=== PATIENT | female | born 1995 | race Caucasian/White ===

== ENCOUNTER 2018-02-15 11:51 | Emergency (ER) | payer OTHER ==
--- NOTE | 2018-02-15 12:39 | ED ---
GI/ HPI - HPI Summary HPI Summary: Pt presents w/ multiple sx which started Sunday. She initially had a loose stool on Sunday without any pain or discomfort however by Sunday she was starting to feel run down, feverish, had a sore throat, achey joints and had ongoing diarrhea. Sunday into Sunday she started to develop abdominal discomfort and this has settled in the left lower quadrant today where it's been constant. She reports this as an annoying pressure - 2/10. Nausea well controlled. Pain does not radiate from this area nor was another area prior to moving to the left lower quadrant. She has had nausea without vomiting but is trying to stay hydrated and eat bland fluids and foods to stay nourished. She denies worsening of symptoms or pain with eating and drinking. Additionally, she denies dysuria, urinary frequency, urinary urgency, flank pain, vaginal irritation, vaginal discharge, vaginal itching, dyspareunia, postcoital bleeding. She does admit she's been taking control since she was 16 years old for dysmenorrhea and recently stopped this 2 weeks ago. She has still not had her menstrual cycle since and is still sexually active. She took a home test which was negative. She feels safe at home. She went to [facility] Sunday and was dx'd w/ a UTI based on the sx she described here and did not provide a urine sample as she was unable to urinate at that time but urinated as soon as she left the office w/o pain or difficulty. Has been taking macrobid and pyridium since w/o relief. Denies CHAUHAN, rhinorrhea, otalgia, sneezing, coughing, dizziness, CP, SOB, numbness, tingling, weakness - just feels wiped out in general. - History of Current Complaint Chief Complaint: EDUrogenitalProblems Time Seen by Provider: 02/15/18 12:07 Stated Complaint: BLADDER INFECTION Hx Obtained From: Patient Pain Intensity: 4 - Allergy/Home Medications Allergies/Adverse Reactions: Allergies Allergy/AdvReac Type Severity Reaction Status Date / Time No Known Allergies Allergy Verified 02/15/18 11:59 Home Medications: Home Medications Nitrofurantoin Monohyd/M-Cryst [Macrobid 100 mg Capsule] 100 mg PO BID 02/15/18 [History Confirmed 02/15/18] Phenazopyridine TAB* [Pyridium 100 mg TAB*] 100 mg PO TID 02/15/18 [History Confirmed 02/15/18] PMH/Surg Hx/FS Hx/Imm Hx Previously Healthy: Yes Endocrine/Hematology History: Denies: Autoimmune Disease Sensory History: Reports: Hx Contacts or Glasses Opthamlomology History: Reports: Hx Contacts or Glasses, Other Sensory Impairments - dry eyes - uses drops (could be from contact lens use) EENT History: Reports: Other - septoplasty Psychiatric History: Reports: Hx Anxiety - on citalopram - Surgical History Surgery Procedure, Year, and Place: wisdom teeth extraction Infectious Disease History: No Infectious Disease History: Denies: Traveled Outside the [place] in Last 30 Days - Family History Known Family History: Positive: Hypertension - hyperlipidemia - Social History Occupation: Employed Full-time Alcohol Use: Weekly Alcohol Amount: 2 x week Hx Substance Use: No Substance Use Type: Reports: None Hx Tobacco Use: No Smoking Status (MU): Never Smoked Tobacco Review of Systems Positive: Fever - subjective fever, Chills - [place] - none since, Fatigue Eyes: Negative Positive: Sore Throat. Negative: Epistaxis, Dental Pain, Ear Ache, Nasal Discharge Cardiovascular: Negative Respiratory: Negative Positive: Abdominal Pain, Nausea. Negative: Vomiting, Diarrhea Genitourinary: Negative Musculoskeletal: Negative Skin: Negative Neurological: Negative Psychological: Normal All Other Systems Reviewed And Are Negative: Yes Physical Exam Triage Information Reviewed: Yes Vital Signs On Initial Exam: Initial Vitals Temp Pulse Resp BP Pulse Ox 97 F 95 17 131/76 97 02/15/18 11:55 02/15/18 11:55 02/15/18 11:55 02/15/18 11:55 02/15/18 11:55 Vital Signs Reviewed: Yes Appearance: Positive: Well-Appearing, No Pain Distress, Well-Nourished Skin: Positive: Warm, Skin Color Reflects Adequate Perfusion, Dry - no rash Head/Face: Positive: Normal Head/Face Inspection Eyes: Positive: Normal, EOMI, Conjunctiva Clear. Negative: Conjunctiva Inflammed, Discharge ENT: Positive: Normal ENT inspection, Hearing grossly normal, Pharynx normal, Nasal congestion - boggy turbinates Rt side, TMs normal, Uvula midline. Negative: Nasal drainage, Tonsillar swelling, Tonsillar exudate, Hoarse voice, Sinus tenderness Neck: Positive: Supple, Nontender, No Lymphadenopathy Respiratory/Lung Sounds: Positive: Clear to Auscultation, Breath Sounds Present. Negative: Rales, Rhonchi, Wheezes Cardiovascular: Positive: Normal, RRR, S1, S2 Abdomen Description: Positive: No Organomegaly, Soft, Other: - LLQ TTP (mild) - no rebounding or referred pain. Negative: CVA Tenderness (R), CVA Tenderness (L ), Distended, Guarding, Hernia @ Bowel Sounds: Positive: Hypoactive Pelvic Exam: Positive: Other - deferred Musculoskeletal: Positive: Normal, Strength/ROM Intact Neurological: Positive: Normal, Sensory/Motor Intact, Alert, Oriented to Person Place, Time, CN Intact II-III Psychiatric: Positive: Normal Diagnostics - Vital Signs Vital Signs Temp Pulse Resp BP Pulse Ox 02/15/18 11:55 97 F 95 17 131/76 97 - Laboratory Result Diagrams: 02/15/18 14:47 02/15/18 14:47 Lab Statement: Any lab studies that have been ordered have been reviewed, and results considered in the medical decision making process. GIGU Course/Dx - Course Course Of Treatment: Labs are without concern for acute pathology. U/A+blood, bacteria, leukocytes, WBC's, RBC's, squamos cells - neg for ketones, glucose, protein...since pt is not having urinary sx and no relief w/ macrobid or pyridium, will have her stop these medications and will wait for cx to decide if she needs anbx. Expained we will call her in 2 days when these return and update her sx. If she has urinary sx at this time, will rx anbx if necessary ( ie. + pos cx). TVUS: 2.7cm cyst Lt ovary w/o torsion B/L. This is most likely cause of her pain. Advised NSAID's, heat pack, etc and f/u w/ WHEAT SHIPPER. Reviewed danger s/sx of when to return to the ED. Pt agrees w/ plan. Strep pending - low clinical suspicion - will d/c pt and call at home if +. - Diagnoses Provider Diagnoses: Cyst of left ovary Discharge - Sign-Out/Discharge Documenting (check all that apply): Patient Departure - Discharge Plan Condition: Stable Disposition: HOME Patient Education Materials: Ovarian Cyst (ED) Referrals: Sarah Coburn MD [Medical Doctor] - Additional Instructions: You appear to have a 2.7 cm left ovarian cyst. This may be treated with anti- inflammatories (i.e. naproxen 500 mg every 12 hours with food as needed for pain ). Additionally he may try heat packs, warm baths, Castrol oil packs. The cause of this cyst is most likely due to the withdrawal of your control. Once her able to restart that, her symptoms should improve in cyst should resolve. It is important however that she follow-up with heavy equipment operating engineer as urine on establish with one currently and her taking control as well as her sexually active. Call number included here to establish care. If your symptoms worsen in the meantime, return to the emergency department. In regards to your urine culture, it is suspected this may have not been a clean catch in which case the sample is contaminated. You may stop your Macrobid and Pyridium as you are reporting no improvement of symptoms and in fact you have new symptom of dizziness which can be a side effect of Macrobid. If any antibiotic is needed, you will receive a call in 2 days and we will update your symptoms and initiate an antibiotic at that time as needed. - Billing Disposition and Condition Condition: STABLE Disposition: Home
[2018-02-15 12:58] LABS: Urine Appearance Cloudy; Urine Blood 1+ (Negative); Urine Color Yellow; Urine Ketones Negative (Negative); Urine Protein Negative (Negative); Urine Specific Gravity 1.003 (1.010-1.030); Urine Urobilinogen Negative (Negative)
[2018-02-15 13:13] LABS: Urine Red Blood Cell 3+(>10/hpf) (Absent); Urine White Blood Cell 3+(>20/hpf) (Absent)
--- NOTE | 2018-02-15 14:47 | RAD ---
Indication: Left lower quadrant pain. Real-time sonography of the pelvis was performed. The uterus measures 8.2 x 3.7 x 4.4 cm. Endometrial echo measures 7.0 cm. Right ovary measures 2.1 x 1.3 x 2.0 cm. Normal flow is noted in the right ovary. Transabdominally the left ovary measures 3.3 x 2.6 x 3.0 cm. There is a left ovarian cyst measuring 2.3 x 2.7 x 1.9 cm. IMPRESSION: Endometrial echo measures 7 mm. Left ovarian cyst measuring up to 2.7 cm. The left ovary is only visualized transabdominally.
[2018-02-15 14:59] LABS: ABS Basophils 0 10^3/ul (0-0.2); ABS Eosinophils 0.1 10^3/ul (0-0.6); ABS Lymphocytes 1.7 10^3/ul (1.0-4.8); ABS Monocytes 0.4 10^3/ul (0-0.8); ABS Neutrophils 5.3 10^3/ul (1.5-7.7); ABS Nucleated RBC 0 10^3/ul; Eosinophil % 0.9 % (0-6); Hematocrit 39 % (35-47); Hemoglobin 13.1 g/dl (12.0-16.0); Lymphocyte % 23.2 % (25-47); Mean Corpuscular HGB Conc 34 g/dl (31-36); Mean Corpuscular Hemoglobin 29 pg (27-31); Mean Corpuscular Volume 87 fL (80-97); Mean Platelet Volume 7.7 um3 (7.4-10.4); Nucleated Red Blood Cells % 0; Platelet Count 248 10^3/ul (150-450); Red Blood Count 4.47 10^6/ul (4.00-5.40); Red Cell Distribution Width 12 % (10.5-15); White Blood Count 7.5 10^3/ul (3.5-10.8)
[2018-02-15 15:23] LABS: EGFR Non-African American 118.2 (>60)
[2018-02-15] MEDS ORDERED: Naproxen TAB* 250 MG PO ONE (15:45)
[2018-02-15 16:17] VITALS: BP 135/79
== END 2018-02-15 16:16 | disposition home or self-care (01) ==
LOC: ED 11:51
DX: N83.202 Unspecified ovarian cyst, left side (principal); R50.9 Fever, unspecified; J02.9 Acute pharyngitis, unspecified; R10.9 Unspecified abdominal pain; R11.0 Nausea
CPT/HCPCS: 36415; 76830; 80053; 81003; 81015; 83605; 83690; 83735; 84702; 85025; 86140; 87086; 87651; 99282; A9270-GY